=== PATIENT | female | born 1960 | race Caucasian/White ===

== ENCOUNTER 2018-06-04 11:15 | Outpatient (CLI) | payer OTHER | END 2018-06-04 11:16 | disposition home or self-care (01) | LOC: BICMAMMO 11:15 | PROVIDERS: ATTEND Family Medicine | DX: Z12.31 Encounter for screening mammogram for malignant neoplasm of breast (principal) | CPT/HCPCS: 77063; 77067 ==

== ENCOUNTER 2019-06-11 09:04 | Inpatient (IN) | payer OTHER ==
--- NOTE | 2019-06-11 09:54 | RAD ---
EXAM: XR Chest 1 View Portable PROVIDED CLINICAL HISTORY: Dyspnea COMPARISON: 07/15/2012 FINDINGS: The cardiac silhouette appears enlarged, which may be least partially on the basis of portable techni que. 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 No focal consolidation, pleural fluid or pneumothorax apparent. IMPRESSION: Prominence of the cardiac silhouette.
[2019-06-11 09:59] LABS: ALT (SGPT) 102 U/L (8-55); AST (SGOT) 37 U/L (5-34); Albumin 3.8 g/dL (3.5-5.0); Alkaline Phosphatase 84 U/L (40-110); Anion Gap 12 mmol/L (10-20); BUN (Urea Nitrogen) 42 mg/dL (9.8-20.1); Bilirubin, Total 0.5 mg/dL (0.2-1.2); Calc. Creatinine Clearance 0 mL/min (70-130); Calcium 8.9 mg/dL (7.8-10.44); Carbon Dioxide 22 mmol/L (22-29); Chloride 110 mmol/L (98-107); Estimated GFR-MDRD 26; Glucose 121 mg/dL (70-105); Lipase 23 U/L (8-78); Potassium 4.4 mmol/L (3.5-5.1); Protein, Total 6.8 g/dL (6.0-8.3); Sodium 140 mmol/L (136-145)
[2019-06-11] MEDS ORDERED: Furosemide 40 MG/4 ML VIAL ONE (10:58)
[2019-06-11 12:27] LABS: #Basophils 0.1 thou/uL (0.0-0.2); #Eosinphils 0.4 thou/uL (0.0-0.7); #Lymphocytes 2.2 thou/uL (1.20-3.40); #Monocytes 0.8 thou/uL (0.11-0.59); #Neutrophils 6.4 thou/uL (1.40-6.50); %Basophils 0.6 % (0.0-1.0); %Eosinophils 3.6 % (0.0-10.0); %Lymphocytes 22.6 % (21.0-51.0); %Monocytes 7.9 % (0.0-10.0); %Neutrophils 65.4 % (42.0-75.0); Hemoglobin 11.5 g/dL (12.0-16.0); Mean Corpuscular HGB CONC 34.9 g/dL (32.0-36.0); Mean Corpuscular Hemoglobin 30.5 pg (27.0-31.0); Mean Corpuscular Volume 87.4 fL (78.0-98.0); Mean Platelet Volume 9.5 fL (7.4-10.4); Platelet Count 181 thou/uL (130-400); RBC Distribution Width 12.2 % (11.5-14.5); Red Blood Cell (RBC) Count 3.76 mill/uL (4.20-5.40); White Blood Cell (WBC) Count 9.8 thou/uL (4.8-10.8)
[2019-06-11] MEDS ORDERED: Ondansetron PF 4 MG/2 ML Vial IVP PRN (12:29)
[2019-06-11] MEDS ORDERED: Ondansetron ODT 4 MG TAB SL PRN (12:29)
[2019-06-11 12:34] VITALS: BMI 36.0
[2019-06-11] MEDS ORDERED: Acetaminophen 325 MG TAB PO PRN (12:58)
[2019-06-11 13:31] LABS: Troponin I 0.011 ng/mL (< 0.028)
[2019-06-11 16:04] LABS: Troponin I Less than 0.010 ng/mL (< 0.028)
[2019-06-11] MEDS ORDERED: Ondansetron ODT 4 MG TAB PO PRN (18:24)
[2019-06-11] MEDS ORDERED: traMADol HCl 50 MG TAB PO SCH (19:00)
--- NOTE | 2019-06-11 19:50 | PDOC.HHP ---
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 The patient states that she had to get up in a recliner last night due to the shortness of breath. She reports ten pound weight gain over the last few weeks, but denies excessive fluid intake. She reports wheezing during her exercise classes recently and felt that she must have been out of shape. She denies chest pain. She has been having a dry cough for the past few weeks that got worst last night with occasional phlegm coming up. She denies fevers or chills. Last week she had generalized achiness, diarrhea, and headaches, and missed a few days of work due to this. She reports sick contacts at work; she works as a nurse practitioner. She went to urgent care today who did a flu swab that came back negative. The patient feels "I think I have a virus, pneumonia, or endocarditis." The patient is not an active smoker. She is able to do physician internist and walk up a flight of stairs without significant shortness of breath. THe patient says she had a referral pending for rheumatology due to complaints of morning stiffness, pain in both hips, low back, left shoulder and left MCP joint. She says she saw ortho yesterday who told her she has arthritis in her shoulders. The patient states she does not have a insurance professional as as an outpatient. ED Course: In the ER, the patient was noted to be 90% on room air. Chest X ray showed cardiomegaly. BNP was 500, tropnin was normal x 32. The patient was given IV lasix 40 mg which she states improved her shortness of breath somewhat. Her heart rate had also dropped to 40 a few times on occasion in the ER. Hospitalist ROS - Review of Systems Constitutional: reports: weakness, malaise. denies: fever, chills, sweats Eyes: denies: pain, vision change Respiratory: reports: cough, shortness of breath, wheezing Cardiovascular: reports: orthopnea, paroxysmal noc. dyspnea, edema. denies: chest pain, palpitations Gastrointestinal: reports: nausea, abdominal pain (RUQ pain for the past one day , but has it intermittently). denies: vomiting Genitourinary: denies: dysuria, frequency Musculoskeletal: reports: shoulder pain (left shoulder), hand pain (left hand pain on MCP joint between thumb and finger), foot pain (right mid foot pain) Skin: denies: rash, lesions Neurological: denies: weakness, numbness, incoordination - Medication Medications: Active Medications Generic Name Dose Route Start Last Admin Trade Name Freq PRN Reason Stop Dose Admin Acetaminophen 650 mg 06/11/19 12:58 06/11/19 13:31 Tylenol PO 650 mg Q6H PRN Administration Headache/Fever or Pain Tramadol HCl 25 mg 06/11/19 19:00 06/11/19 19:18 Ultram PO 06/11/19 21:00 Not Given NOW [facility] Hospitalist History - Past Medical History Other Medical History: Tetralogy of Fallot as a kid Migraines Positive TB test - Past Surgical History Other Surgical History: 2 knee replacements Fractured bones in arms - Family History Family History: reports: hypertension - Social History Smoking Status: Never smoker Alcohol: reports: Occassional Living Situation: With Family Occupation: Nurse practitioner Activity level: independent ambulation - Exam General Appearance: NAD, awake alert Eye: PERRL, anicteric sclera ENT: normocephalic atraumatic, no oropharyngeal lesions Neck: supple, symmetric, no JVD, no thyromegaly Heart: RRR, no gallops, no rubs, normal peripheral pulses Heart - other findings: systolic murmur heard loudest at left second intercostal Respiratory: CTAB, no wheezes, no rales, no ronchi Gastrointestinal: soft, normal bowel sounds, no splenomegaly Gastrointestinal - other findings: RUQ tenderness, mild abdominal distension Extremities: no cyanosis, no clubbing, no edema Hospitalist Results - Labs Result Diagrams: 06/11/19 12:07 06/11/19 09:29 Lab results: WBC 9.8 thou/uL (4.8-10.8) 06/11/19 12:07 Hgb 11.5 g/dL (12.0-16.0) L 06/11/19 12:07 Hct 32.8 % (36.0-47.0) L 06/11/19 12:07 MCV 87.4 fL (78.0-98.0) 06/11/19 12:07 Plt Count 181 thou/uL (130-400) 06/11/19 12:07 Neutrophils % 65.4 % (42.0-75.0) 06/11/19 12:07 Sodium 140 mmol/L (136-145) 06/11/19 09:29 Potassium 4.4 mmol/L (3.5-5.1) 06/11/19 09:29 Chloride 110 mmol/L (98-107) H 06/11/19 09:29 Carbon Dioxide 22 mmol/L (22-29) 06/11/19 09:29 BUN 42 mg/dL (9.8-20.1) H 06/11/19 09:29 Creatinine 1.96 mg/dL (0.6-1.1) H 06/11/19 09:29 Glucose 121 mg/dL (70-105) H 06/11/19 09:29 Calcium 8.9 mg/dL (7.8-10.44) 06/11/19 09:29 Total Bilirubin 0.5 mg/dL (0.2-1.2) 06/11/19 09:29 AST 37 U/L (5-34) H 06/11/19 09:29 ALT 102 U/L (8-55) H 06/11/19 09:29 Alkaline Phosphatase 84 U/L (40-110) 06/11/19 09:29 Troponin I Less than 0.010 ng/mL (< 0.028) 06/11/19 15:25 B-Natriuretic Peptide 497.4 pg/mL (0-100) H 06/11/19 09:29 Serum Total Protein 6.8 g/dL (6.0-8.3) 06/11/19 09:29 Albumin 3.8 g/dL (3.5-5.0) 06/11/19 09:29 Lipase 23 U/L (8-78) 06/11/19 09:29 Hospitalist H&P A/P - Plan Plan: EKG: incomplete RBBB Chest X ray: cardiomegaly This is a 58 year old female who presented with shortness of breath that started last night, with cardiomegaly on X ray, elevated BNP, admitted for possible acute heart failure #Acute heart failure - possibly viral myocarditis? #Tetralogy of Fallot - presented with orthopnea and edema which improved with lasix, had elevated BNP. Will hold additional lasix for now. EKG showed incomplete RBBB, not on beta blockers - will repeat ECHO, has significant murmur on exam. Rule out katherine vs endocarditis . Trop negative times three - check respiratory viral panel BOYD - creatinine 1.96 - possibly cardio renal, repeat BMP in morning - check UA Headache - likely viral - tylenol prn -check ESR and CT head given concern for autoimmune pathology as outpatient - no neuro deficits on exam Myalgias - check SHARMIN test in morning, ESR, CK level, aldolase - respiratory viral panel Diarrhea -check stool culture - respiratory viral panel Anemia - HB 11, check B12 and folate tomorrow Hyperglycemia - glucose 120, check A1C tomorrow History of positive PPD - s/p treatment with INH DVT prophylaxis: ambulation Code status: full code
[2019-06-11] MEDS ORDERED: Amlodipine 5 MG TAB PO SCH (20:45)
--- NOTE | 2019-06-11 22:17 | CT ---
CT Brain WO Con HISTORY: Right frontal headache. COMPARISON: None. FINDINGS: The ventricular and cisternal system is within normal limits. There are no signs of intrace rebral hemorrhage or extra-axial fluid collections. The mastoid air cells are clear. Minimal mucosal changes seen within the maxillary sinuses. IMPRESSION: No acute intracranial abnormalities.
[2019-06-11 22:30] LABS: Bacteria/HPF None Seen HPF (None Seen); Bilirubin Negative (Negative); Blood, Urine 1+ (Negative); Clarity Clear (Clear); Glucose, Urine (Dipstick) Normal (Negative); Leukocyte 75 Leu/uL (Negative); Nitrite Negative (Negative); Protein, Urine (Dipstick) 50 mg/dL (Neg-Trace); RBC/HPF 0-3 HPF (0-3); Squamous Epithelial 0-3 HPF (0-3); Urobilinogen Normal mg/dL (Less than 2)
[2019-06-11] MEDS: SUMAtriptan Succinate 50 MG TAB PO PRN (22:30)
[2019-06-11 22:31] LABS: Urine Culture Reflex Yes Yes
[2019-06-12 05:19] LABS: Hemoglobin 10.9 g/dL (12.0-16.0); Mean Corpuscular HGB CONC 34.3 g/dL (32.0-36.0); Mean Corpuscular Hemoglobin 29.9 pg (27.0-31.0); Mean Corpuscular Volume 87.1 fL (78.0-98.0); Mean Platelet Volume 8.5 fL (7.4-10.4); Platelet Count 182 thou/uL (130-400); RBC Distribution Width 12.2 % (11.5-14.5); Red Blood Cell (RBC) Count 3.66 mill/uL (4.20-5.40); White Blood Cell (WBC) Count 8.4 thou/uL (4.8-10.8)
[2019-06-12 05:24] LABS: Hemoglobin A1c 5.6 % (4.0-6.0)
[2019-06-12 05:37] LABS: ALT (SGPT) 75 U/L (8-55); AST (SGOT) 23 U/L (5-34); Albumin 3.4 g/dL (3.5-5.0); Alkaline Phosphatase 75 U/L (40-110); Anion Gap 12 mmol/L (10-20); BUN (Urea Nitrogen) 44 mg/dL (9.8-20.1); Bilirubin, Total 0.4 mg/dL (0.2-1.2); CK (CPK) 110 U/L (29-168); Calc. Creatinine Clearance 57 mL/min (70-130); Calcium 8.4 mg/dL (7.8-10.44); Carbon Dioxide 22 mmol/L (22-29); Chloride 111 mmol/L (98-107); Estimated GFR-MDRD 34; Globulin 2.6 g/dL (2.4-3.5); Glucose 98 mg/dL (70-105); Potassium 4.4 mmol/L (3.5-5.1); Sodium 141 mmol/L (136-145)
[2019-06-12] MEDS: Amlodipine 5 MG TAB PO SCH (07:14)
[2019-06-12] MEDS: SUMAtriptan Succinate 50 MG TAB PO PRN ×2 (11:27→17:11)
--- NOTE | 2019-06-12 11:37 | PDOC.HOSPP ---
- Subjective Encounter Date: 06/12/19 Encounter Time: 11:35 non-verbal Subjective: The patient still complains of feeling short of breath and feels she has some virus. Patient denies leg swelling today. She does have a mild cough. Patient is wondering how she got CHF, never had hypertension before and her VSD was repaired as a child. SHe is interested in seeing a chain tender. . Also says her abdomen feels bloated and she is unable to eat more than a few bites without feeling full. Denies nausea or vomiting. She does give a history of fatty liver. She denies sore throat or fever, was asking whether she has mono She still has some generalized malaise - Objective Vital Signs & Weight: Vital Signs (12 hours) Temp Pulse Resp BP BP Pulse Ox 06/12/19 07:26 98.8 F 53 L 16 151/70 H 94 L 06/12/19 04:00 98.5 F 69 18 122/66 92 L Weight Weight 204 lb 12.8 oz I&O: 06/11/19 06/12/19 06/13/19 06:59 06:59 06:59 Intake Total 990 Output Total 801 Balance 189 Result Diagrams: 06/12/19 04:51 06/12/19 04:51 Hospitalist ROS - Review of Systems Constitutional: denies: fever, chills Respiratory: reports: cough Cardiovascular: denies: chest pain, palpitations Gastrointestinal: denies: nausea, vomiting, abdominal pain - Medication Medications: Active Medications Generic Name Dose Route Start Last Admin Trade Name Freq PRN Reason Stop Dose Admin Acetaminophen 650 mg 06/11/19 12:58 06/11/19 13:31 Tylenol PO 650 mg Q6H PRN Administration Headache/Fever or Pain Amlodipine Besylate 5 mg 06/12/19 09:00 06/12/19 07:14 Norvasc PO Not Given DAILY LORI Ondansetron HCl 4 mg 06/11/19 18:24 06/12/19 11:27 Zofran Odt PO 4 mg Q4H PRN Administration Nausea/Vomiting Sumatriptan Succinate 50 mg 06/11/19 18:24 06/12/19 11:27 Imitrex PO 50 mg Q2H PRN Administration Migraine Headache - Exam General Appearance: NAD, awake alert Eye: PERRL, anicteric sclera ENT: normocephalic atraumatic, no oropharyngeal lesions Neck: supple, symmetric, no JVD, no thyromegaly Heart: RRR, no gallops, no rubs, normal peripheral pulses Heart - other findings: systolic murmur heard over precordium Respiratory: CTAB, no wheezes, no rales, no ronchi, normal chest expansion Gastrointestinal: soft Gastrointestinal - other findings: RUQ tenderness, possible hepatomegaly to percussion Extremities: no cyanosis, no clubbing, no edema Skin: normal turgor, no lesions, no rashes Hosp A/P - Plan CT head: negative for acute disease ECHO: moderate MR, mild to moderate TR, mild pulmonic regurgitation, EF 50-55% This is a 58 year old female who presented with shortness of breath that started last night, with cardiomegaly on X ray, elevated BNP, admitted for possible acute heart failure #Acute heart failure - possibly viral myocarditis #History of Tetralogy of Fallot #Moderate MR - presented with orthopnea and edema which improved with lasix, had elevated BNP. ECHO shows EF 50-55%, did not comment on diastolic dysfunction. She does have moderate MR , patient is interested in a cardiology consult while here for workup of heart failure and given history of Tetralogy of Fallot -respiratory viral panel negative #RUQ pain #Transaminitis - likely congestive hepatopathy - will order abdominal ultrasound due to bloating and RUQ tenderness. Patient reports history of fatty liver - LFTs came down with lasix. #BOYD - possibly cardiorenal - creatinine improved to 1.54 after receiving lasix. Will obtain RUQ ultrasound , if still signs of fluid buildup will give more lasix -UA shows 75 leukocyte esterase, 11-20 WBC, urine culture pending #Headache with history of migraines - likely viral - tylenol prn and sumatriptan prn - ESR negative, CT head negative #Myalgias -SHARMIN pending, ESR normal, CK normal, aldolase pending - RVP panel negative #Diarrhea -stool culture negative - respiratory viral panel negative #Anemia - HB 11, B12 and folate normal #Prediabetes - HbA1C 5.6, patient needs weight loss #History of positive PPD - s/p treatment with INH DVT prophylaxis: heparin SC Code status: full code
--- NOTE | 2019-06-12 14:12 | ULT ---
EXAM: Right upper quadrant ultrasound PROVIDED CLINICAL HISTORY: Abdominal pain COMPARISON: None FINDINGS: Visualized portions of the pancreas appear normal. Liver demonstrates no solid mass or intrahepatic b iliary ductal dilatation. Simple appearing left hepatic lobe cyst. Common duct is nondilated. There is conspicuous thickening involving the gallbladder wall measuring up to 1 cm. There is no evidence f or gallstones or pericholecystic fluid. The presence or absence of a sonographic Lino sign is not indicated by the plastics technician. Right kidney demonstrates no hydronephrosis or mass. IMPRESSION: Nonspecific gallbladder wall thickening without evidence for stones. If there is concern for acalculo us cholecystitis, consider HIDA scan.
[2019-06-12] MEDS: Heparin 5,000 UNITS/ML VIAL SC SCH ×2 (15:12→20:20)
[2019-06-12] MEDS ORDERED: Furosemide 40 MG/4 ML VIAL SLOW IVP SCH (16:45)
--- NOTE | 2019-06-12 19:58 | CON ---
DATE OF CONSULTATION: HISTORY OF PRESENT ILLNESS: Ms. Ana Rodriguez is a 58-year-old white female , who has history of tetralogy of Fallot. She underwent Martínez procedure at the age of 1 and then further repair at the age of 5. She has spent her entire adult life without significant cardiac problems. Over the last several weeks, she has had problems with increased shortness of breath as well as a 10-pound weight gain. She also has been wheezing during her exercise classes and a dry cough. She has developed diarrhea and came to the emergency room because she continued to have shortness of breath. In the emergency room, room air O2 saturation was 90%. She was given Lasix 40 mg IV, which improved her shortness of breath somewhat. PAST MEDICAL HISTORY: 1. Tetralogy of Fallot as noted above. 2. She has a history of migraines. MEDICATIONS: At home. 1. Travatan Z one drop daily. 2. Imitrex 50 mg q.2 hours p.r.n. 3. Zofran p.r.n. PAST SURGICAL HISTORY: Two knee replacements, repair of tetralogy of Fallot. SOCIAL HISTORY: She does not smoke. Occasionally drinks. REVIEW OF SYSTEMS: Unremarkable. PHYSICAL EXAMINATION: VITAL SIGNS: Blood pressure 168/78, pulse of 54. HEENT: PERRL. NECK: Supple. CHEST: Clear. CARDIAC: S1 and S2 normal without any S3 or S4. There is a 1-2/6 holosystolic murmur on the left sternal border. ABDOMEN: Normal bowel sounds without tenderness or organomegaly. EXTREMITIES: Revealed no clubbing, cyanosis, or edema. NEUROLOGICAL: Grossly intact. SKIN: Warm and dry. LABORATORY DATA: EKG revealed sinus bradycardia with rate of 50 per minute with incomplete right bundle-branch block. Poor R-wave progression. Cardiac enzymes were unremarkable. BNP 507.5, BUN 42, creatinine 1.96, sodium 140, potassium 4.4, chloride 110. Hemoglobin 10.9, hematocrit 31.9, white count 8400, platelets 182,000. Echocardiogram revealed ejection fraction 50% to 55%, the study was technically difficult. There was moderate left atrial enlargement, moderate mitral regurgitation, mild to moderate tricuspid regurgitation, and mild pulmonic regurgitation. IMPRESSION: 1. Increased dyspnea, which I doubt is due to a cardiac cause and probably more related to what sounds like a viral syndrome. She also may have some degree of diastlic dysfunction. 2. Volume depletion from looking at her BUN and creatinine. She states that she has been having diarrhea and has not felt like eating or drinking anything. 3. Status post repair of tetralogy. 4. Probable hypertension. 5. History of migraines. PLAN: At the present time, from a cardiovascular standpoint, I have no specific recommendations. I will place her on DuoNeb since she states that she noticed that she was wheezing at exercise class. She may need Furosemide chronically. I also suggested that she should consider at some point in time seeing a pediatric acute care unit nurse since in general they are the ones who continue to follow adults who have had repair of congenital abnormalities. Job ID: [id number]
[2019-06-13 05:42] LABS: Hemoglobin 11.1 g/dL (12.0-16.0); Mean Corpuscular HGB CONC 33.9 g/dL (32.0-36.0); Mean Corpuscular Hemoglobin 29.8 pg (27.0-31.0); Mean Platelet Volume 8.8 fL (7.4-10.4); Platelet Count 198 thou/uL (130-400); RBC Distribution Width 12.1 % (11.5-14.5); Red Blood Cell (RBC) Count 3.73 mill/uL (4.20-5.40); White Blood Cell (WBC) Count 8.8 thou/uL (4.8-10.8)
[2019-06-13 06:01] LABS: Anion Gap 12 mmol/L (10-20); BUN (Urea Nitrogen) 40 mg/dL (9.8-20.1); Calc. Creatinine Clearance 58 mL/min (70-130); Calcium 8.8 mg/dL (7.8-10.44); Carbon Dioxide 26 mmol/L (22-29); Chloride 108 mmol/L (98-107); Estimated GFR-MDRD 36; Glucose 94 mg/dL (70-105); Potassium 4.6 mmol/L (3.5-5.1); Sodium 141 mmol/L (136-145)
[2019-06-13] MEDS: Amlodipine 5 MG TAB PO SCH (09:31)
[2019-06-13] MEDS: Heparin 5,000 UNITS/ML VIAL SC SCH ×2 (09:32→15:46)
[2019-06-13] MEDS ORDERED: Azithromycin 250 MG TAB PO SCH (10:15)
[2019-06-13 10:57] LABS: ALT (SGPT) 64 U/L (8-55); AST (SGOT) 20 U/L (5-34); Albumin 3.8 g/dL (3.5-5.0); Alkaline Phosphatase 79 U/L (40-110); Bilirubin, Direct 0.2 mg/dL (0.1-0.3); Bilirubin, Total 0.4 mg/dL (0.2-1.2); Protein, Total 6.6 g/dL (6.0-8.3)
[2019-06-13] MEDS ORDERED: Budesonide 0.25 MG/2 ML NEB ONE (11:27)
--- NOTE | 2019-06-13 11:36 | CT ---
CT Chest WO Con HISTORY: Shortness of breath. Cough and chest pain. COMPARISON: None. FINDINGS: The lungs are clear of any infiltrates. There are mild bilateral pleural effusions right la rger than left with bibasilar atelectatic changes. 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 Pulmonary arteries are normal in caliber. There is a hypodensity within the left lobe of liver most likely a cyst. The gallbladder wall appears thickened. This is been noted on a previous ultrasound. IMPRESSION: Bilateral pleural effusions right larger than left with bibasilar atelectatic lung change slightly more confluent in the right lower lobe. 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 Gallbladder wall thickening.
[2019-06-13] MEDS ORDERED: guaiFENesin ER 600 MG TAB PO SCH ×2 (12:00→21:00)
[2019-06-13 13:36] LABS: ANA Symphony (Qualitative) Negative (Negative); ANA Symphony (Quantitative) 0.4 Ratio (< 0.7 Negative); dsDNA IgG Antibody 5.1 IU/mL (<10 Negative)
[2019-06-13 16:32] VITALS: BP 154/76; TEMP 98.4
--- NOTE | 2019-06-13 17:22 | DIS ---
DATE OF ADMISSION: 06/11/2019 DATE OF DISCHARGE: 06/13/2019 DISCHARGE DIAGNOSES: Acute diastolic heart failure, possible exercise-induced asthma, moderate mitral regurgitation, possible exercise-induced asthma versus viral bronchitis, acute kidney injury, transaminitis, anemia. CONSULTATIONS: Cardiology with Dr. Cristobal. PROCEDURES: None. BRIEF HISTORY OF PRESENT ILLNESS: This is a 58-year-old female with a past medical history of tetralogy of Fallot, status post VSD with patch placement in the past , migraines, who presented with shortness of breath that had started the night before admission. The patient reported having to sleep in a recliner due to shortness of breath and also reported a 10-pound weight gain over the past few weeks. She also reported dyspnea on exertion and wheezing during her exercise classes. The patient also reported feeling flu-like symptoms for the past one week, however, she had a negative flu test at Urgent Care. Upon presentation to the ER, the patient was noted to have a BNP of 500, creatinine of 1.96, and her oxygen saturation was 98% on room air. The patient was given IV Lasix and admitted for further workup. Chest x-ray on ER had showed cardiomegaly. HOSPITAL COURSE: Acute diastolic heart failure in the setting of history of tetralogy of Fallot, moderate mitral regurgitation, moderate tricuspid regurgitation: The patient had reported some improvement with Lasix and her edema had improved. ECHO showed an EF of 50% to 55%, [id number] TR, and moderate MR. Cardiology was consulted and did not think this was heart failure and thought it was more of a viral pathology but eventually agreed she may have some diastolic dysfunction. The patient, however had complained of some abdominal distention and after having a normal ultrasound of her bladder, she was given additional dose of IV Lasix on 06/12 with improvement in her abdominal distention. The patient also reported a 4-pound weight loss after receiving her IV Lasix and she felt much less short of breath while ambulating. The patient had a CT scan of her chest due to suspicion of heart failure and this showed bilateral pleural effusions, right greater than left. The patient was given an additional dose of 40 mg oral Lasix on the day of discharge. She will be discharged with 2 additional days of Lasix and will follow up with her PCP in a few days and have her labs repeated. Cardiology advised the patient to follow up with a pediatric clinical dietician as an outpatient Possible exercise-induced asthma: The patient reported wheezing during her exercise classes and persistent cough. She was started on some breathing treatments and Pulmicort, which she stated helped her cough. She was also started on empiric antibiotics with azithromycin. The patient did not have any evidence of pneumonia on chest x-ray or CT scan of her chest. However, given that she may have possible undiagnosed asthma or COPD, she was given a prescription for azithromycin for atypical coverage. It was advised that the patient get PFTs done as an outpatient for further workup of this. She was discharged on albuterol inhaler p.r.n., and she was given a prescription for Pulmicort inhaler to take twice daily. This can be continued at the discretion of her PCP. Acute kidney injury: The patient presented with a creatinine of 1.96. She is given IV Lasix for 2 days and her creatinine improved to 1.47. The patient states that she wants to go home; therefore, she was given Lasix orally for an additional 2 days and will have her BMP rechecked with her PCP in 2 days. She did have a UA done, which showed only 50 of protein, 1+ blood, 11 to 20 white blood cells with normal urine culture. Right upper quadrant pain/transaminitis: This is likely secondary to congestive hepatopathy. The patient did have elevated AST of 37 and ALT of 102 on admission. This came down to 23 and 75 respectively on the day of discharge. She did have an abdominal ultrasound which showed gallbladder wall thickening without evidence of stones. Given that she received IV Lasix for 2 days with improvement, this is likely secondary to congestive hepatopathy. The patient should have LFTs repeated as an outpatient. Anemia: The patient has hemoglobin of 11.1. She had vitamin B12 and folate level that were done which were normal. The patient should have this worked up as an outpatient, consider outpatient colonoscopy. Myalgias: The patient had reported multiple achy joints in her hip, shoulder, and foot. She had ESR checked, which was unremarkable. An SHARMIN panel was unremarkable. She also had a respiratory viral panel which was negative for influenza, parainfluenza, and adenovirus and human metapneumovirus and rhinovirus. These seemed to have resolved on the day of discharge. Migraines: The patient will continue with her sumatriptan p.r.n. Diarrhea: The patient had stool culture done which was negative. This may have been viral. Her respiratory viral panel was normal. Prediabetes: The patient had HbA1c of 5.6. The patient was advised that she needs weight loss. She should have this repeated as an outpatient. Hypertension: The patient was noted to have blood pressure of 150s to 160 in the hospital. The patient states she has never had a history of high blood pressure and her blood pressure is typically in the 90s to 100s. She will take Lasix for 2 days and have her blood pressure rechecked with her PCP and see if she needs antihypertensive therapy as an outpatient. DISCHARGE PHYSICAL EXAMINATION: VITAL SIGNS: Temperature 98.4, heart rate 65, respiratory rate 14, O2 saturation 96% on room air, blood pressure 154/76. GENERAL: The patient is obese. She is alert, awake, oriented x3. CVS: Regular rate and rhythm with a systolic murmur heard in the left second and right second intercostal space. LUNGS: Slightly diminished at the bases, but no wheezing heard. ABDOMEN: Positive bowel sounds, soft, nontender, nondistended. EXTREMITIES: No significant edema. PERTINENT LABORATORY DATA: CBC on 06/13: Shows a hemoglobin 11.1, hematocrit 30.2. BMP on 06/12: Chloride was 108, creatinine was 1.47. LFTs: AST 06/12: AST is 20, ALT is 64, alkaline phosphatase is 79. Hemoglobin A1c: Was 5.6. BNP: Was 507.5. Vitamin B12: 250. Folate: 11.80. Troponin I: Was 0.013, 0.011, less than 0.010. UA: Shows urine protein 50, 1+ blood, 75 leukocyte esterase, 11 to 20 white blood cells, 11 to 20 hyaline casts. SHARMIN screen: Was negative. Respiratory viral panel 06/11: Was unremarkable with no influenza, RSV, adenovirus, human metapneumovirus, parainfluenza virus, rhinovirus. Urine culture 06/11: Shows 10,000 to 25,000 mixed skin jona. Stool culture 06/12: Few normal enteric jona. Campylobacter and shiga toxin assay: Was negative. DISCHARGE CONDITION: Stable. DIET: Heart healthy diet. ACTIVITY: As tolerated. The patient should consider using albuterol 30 minutes prior to exercise. DISCHARGE MEDICATIONS: 1. Albuterol ProAir two puff inhalation q.6 hours p.r.n. 2. Mucinex 600 mg p.o. q.12 hours for 7 days. 3. Azithromycin 250 mg p.o. daily for 4 days. 4. Pulmicort inhaled b.i.d. 5. Furosemide 40 mg p.o. daily for 2 days. 6. Sumatriptan 50 mg p.o. q.2 hours p.r.n. for headache. 7. Travoprost. DISCHARGE INSTRUCTIONS: The patient to follow up with her PCP in 2 days and have her BMP and LFTs repeated. She should have outpatient PFTs done. She should follow up with a pediatric clinical dietician as an outpatient. Job ID: [id number]
[2019-06-13] MEDS ORDERED: Furosemide 40 MG TAB PO SCH (17:30)
[2019-06-13] MEDS ORDERED: Budesonide 0.25 MG/2 ML NEB INH SCH (18:30)
[2019-06-14] MEDS ORDERED: Furosemide 40 MG/4 ML VIAL SLOW IVP SCH (09:00)
[2019-06-14] MEDS ORDERED: Hydrochlorothiazide 25 MG TAB PO SCH (09:00)
== END 2019-06-13 17:57 | disposition home or self-care (01) | DRG 291 ==
LOC: ERS 09:04 → 2SW 11:24 → OBSVTOIN 11:24
PROVIDERS: ADMIT Internal Medicine; ATTEND Internal Medicine
DX: I11.0 Hypertensive heart disease with heart failure (principal); I50.31 Acute diastolic (congestive) heart failure; N17.9 Acute kidney failure, unspecified; G43.909 Migraine, unspecified, not intractable, without status migrainosus; Z96.653 Presence of artificial knee joint, bilateral; D64.9 Anemia, unspecified; I34.0 Nonrheumatic mitral (valve) insufficiency; J45.990 Exercise induced bronchospasm; Z79.899 Other long term (current) drug therapy; R19.7 Diarrhea, unspecified; R73.03 Prediabetes; J40 Bronchitis, not specified as acute or chronic
CPT/HCPCS: 36415; 70450; 71045; 71250; 76705; 80048; 80053; 80076; 81001; 82085; 82550; 82607; 82746; 83036; 83690; 83880; 84484; 85025; 85027; 85652; 86038; 86225; 87045; 87046; 87086; 87427; 87449; 87633; 93005; 93306; 94640; 96374; J1940; J7620; J7626; Q0162

== ENCOUNTER 2019-06-30 11:02 | Outpatient (CLI) | payer OTHER ==
--- NOTE | 2019-06-30 12:48 | CT ---
CT ABDOMEN AND PELVIS WITH ORAL AND IV CONTRAST: HISTORY: Generalized abdominal pain. FINDINGS: The lung bases are clear. There is a 17 mm septated cyst in the left lobe of the liver close to the dome. The tiny low-density lesion in the right lobe of the liver is likely a cyst as well. No calci fied gallstones are seen. The spleen, pancreas, adrenal glands, and kidneys are normal. No free air, free fluid, or lymphadenopathy is noted in the abdomen or pelvis. Uterus is present. T he small bowel loops are not abnormally dilated. There is prominence of the wall of the colon. Ther e are a few sigmoid diverticula. There are vascular calcifications without evidence of aneurysmal dilatation of the abdominal aorta. There are degenerative changes in the spine. IMPRESSION: 1. Hepatic cysts. 2. Sigmoid diverticulosis. 3. Wall prominence/thickening of the colon. Further evaluation with colonoscopy would be helpful. POS: [facility]
[2019-06-30] MEDS ORDERED: Iopamidol-370 76% 500 ML 1 ML ONE (13:37)
== END 2019-06-30 11:03 | disposition home or self-care (01) ==
LOC: BICCT 11:02
PROVIDERS: ATTEND Family Medicine
DX: R10.84 Generalized abdominal pain (principal); K76.89 Other specified diseases of liver; K57.30 Diverticulosis of large intestine without perforation or abscess without bleeding; K63.89 Other specified diseases of intestine
CPT/HCPCS: 74177; Q9967

== ENCOUNTER 2019-06-30 14:12 | Outpatient (CLI) | payer OTHER ==
--- NOTE | 2019-06-30 14:18 | MMO ---
Bilateral MAMMO Bilat Screen [facility]. CLINICAL HISTORY: Patient is 59 years old and is seen for screening. The patient has no family history of breast cancer. The patient has no personal history of cancer. The patient has a history of right Excisional Biopsy at age 35 - benign. VIEWS: The views performed were: bilateral craniocaudal with tomosynthesis and bilateral mediolateral oblique with tomosynthesis. FILMS COMPARED: The present examination has been compared to prior imaging studies performed at [facility] on 04/25/2008 and 06/04/2018. This study has been interpreted with the assistance of computer-aided detection. MAMMOGRAM FINDINGS: The breasts are heterogeneously dense, which could obscure a lesion on mammography. There are no suspicious masses, suspicious calcifications, or new areas of architectural distortion. IMPRESSION: THERE IS NO MAMMOGRAPHIC EVIDENCE OF MALIGNANCY. A ROUTINE FOLLOW-UP MAMMOGRAM IN 1 YEAR IS RECOMMENDED. THE RESULTS OF THIS EXAM WERE SENT TO THE PATIENT. ACR BI-RADS Category 1 - Negative MAMMOGRAPHY NOTE: 1. A negative mammogram report should not delay a biopsy if a dominant of clinically suspicious mass is present. 2. Approximately 10% to 15% of breast cancers are not detected by mammography. 3. Adenosis and dense breasts may obscure an underlying neoplasm. Reported by: JULIAN KNIGHT MD Electonically Signed: [id number]
== END 2019-06-30 14:13 | disposition home or self-care (01) ==
LOC: BICMAMMO 14:12
PROVIDERS: ATTEND Family Medicine
DX: Z12.31 Encounter for screening mammogram for malignant neoplasm of breast (principal); Z91.89 Other specified personal risk factors, not elsewhere classified
CPT/HCPCS: 77063; 77067

== ENCOUNTER 2019-07-06 12:27 | Outpatient (CLI) | payer OTHER ==
--- NOTE | 2019-07-06 16:25 | NM ---
HEPATOBILIARY SCAN: HISTORY:Abdominal pain. No gallstones and ultrasound of 06/12/2019. RADIOPHARMACEUTICAL: 5.4 mCi Technetium 99m Mebrofenin injected intravenously FINDINGS: There is normal tracer extraction by the liver with normal excretion into the biliary tracts and smal l bowel loops and normal filling of the gallbladder. The calculated gallbladder ejection fraction following an oral fatty meal measures 62%. IMPRESSION:Normal exam.
== END 2019-07-06 12:28 | disposition home or self-care (01) ==
LOC: NM 12:27
PROVIDERS: ATTEND Family Medicine
DX: K82.8 Other specified diseases of gallbladder (principal)
CPT/HCPCS: 78227; A9537

== ENCOUNTER 2022-09-12 10:42 | Outpatient (CLI) | payer BC | END 2022-09-12 10:43 | disposition home or self-care (01) | LOC: BICMAMMO 10:42 | PROVIDERS: ATTEND Family Medicine | DX: Z12.31 Encounter for screening mammogram for malignant neoplasm of breast (principal); Z91.89 Other specified personal risk factors, not elsewhere classified | CPT/HCPCS: 77063; 77067 ==

== ENCOUNTER 2024-08-01 15:45 | Outpatient (CLI) | payer BC ==
[2024-08-01 16:47] LABS: #Basophils 0.04 10x3/uL (0.0-0.2); %Basophils 0.4 % (0.0-1.0); %Eosinophils 2.8 % (0.0-10.0); %Monocytes 7.9 % (0.0-10.0); %Neutrophils 56.7 % (42.0-75.0); Hematocrit 41.9 % (36.0-47.0); Hemoglobin 14.1 g/dL (12.0-16.0); Mean Corpuscular HGB CONC 33.7 g/dL (32.0-36.0); Mean Platelet Volume 11.8 fL (7.4-10.4); Platelet Count 241 10x3/uL (130-400); RBC Distribution Width 13.2 % (11.5-14.5); Red Blood Cell (RBC) Count 4.87 mill/uL (4.20-5.40)
[2024-08-01 17:07] LABS: Anion Gap 12 mmol/L (10-20); BUN (Urea Nitrogen) 18 mg/dL (9.8-20.1); Calc. Creatinine Clearance 0 mL/min (70-130); Calcium 9.2 mg/dL (7.8-10.44); Carbon Dioxide 21 mmol/L (23-31); Chloride 113 mmol/L (98-107); Estimated GFR 86; Glucose 79 mg/dL (80-115); Potassium 4.2 mmol/L (3.5-5.1); Sodium 142 mmol/L (136-145)
[2024-08-01 17:09] LABS: INR-International Normal Ratio 0.9; Prothrombin Time 12.6 sec (12.0-14.7)
== END 2024-08-01 15:46 | disposition home or self-care (01) ==
LOC: LABBT 15:45
PROVIDERS: ATTEND Orthopaedic Surgery
DX: Z01.818 Encounter for other preprocedural examination (principal); M16.11 Unilateral primary osteoarthritis, right hip
CPT/HCPCS: 80048; 85025; 85610; 87081; 93005; 93010

== ENCOUNTER 2024-08-09 06:35 | Observation (INO) | payer MEDICARE, OTHER ==
[2024-08-01 15:55] VITALS: BMI 34.5
[2024-08-09] MEDS ORDERED: SUMAtriptan Succinate 50 MG TAB PO PRN (07:05)
[2024-08-09] MEDS ORDERED: Tranexamic Acid 1,000 MG/10 ML VIAL ONE (07:40)
[2024-08-09] MEDS ORDERED: Vancomycin (BATCH) 300 ML ONE (07:40)
[2024-08-09] MEDS ORDERED: Sodium Chloride 0.9% 100 ML ONE (07:40)
[2024-08-09] MEDS ORDERED: CEFAZOLIN 2 GM VIAL ONE (07:55)
[2024-08-09] MEDS ORDERED: Midazolam HCl 2 mg/2 ml Vial ONE (07:57)
[2024-08-09] MEDS ORDERED: fentaNYL 50 mcg/mL 1 mL Vial ONE (07:57)
[2024-08-09] MEDS ORDERED: Lidocaine 1.5% w/Epi 1:200K 30 ML VIAL (Epid Use) ONE (08:42)
[2024-08-09] MEDS ORDERED: Rocuronium Bromide 10 MG/ML (10ML VIAL) ONE (09:02)
[2024-08-09] MEDS ORDERED: PROPOFOL 20 ML ONE (09:02)
[2024-08-09] MEDS ORDERED: fentaNYL PF 100 MCG/2 ML SYRINGE ONE ×2 (09:02→11:51)
[2024-08-09] MEDS ORDERED: Lidocaine 2% PF 5 ML VIAL ONE (09:10)
[2024-08-09] MEDS ORDERED: PHENYLEPHRINE-NS 100 MCG/ML 10 ML SYRINGE ONE ×2 (09:10→11:02)
[2024-08-09] MEDS ORDERED: Lidocaine 2% 6 ML (Jelly) SYR ONE (09:10)
[2024-08-09] MEDS ORDERED: HYDROcodone/Acetaminophen 10/325 mg Tablet PO PRN (09:13)
[2024-08-09] MEDS ORDERED: diphenhydrAMINE 25 MG CAP PO PRN (09:15)
[2024-08-09] MEDS ORDERED: Bupivacaine 0.25% 10 ML VIAL EPIDURAL PRN (09:15)
[2024-08-09] MEDS ORDERED: Naloxone HCl 0.4 mg/ml Vial IV PRN (09:15)
[2024-08-09] MEDS ORDERED: traMADol HCl 50 MG TAB PO PRN ×2 (09:15)
[2024-08-09] MEDS ORDERED: Promethazine HCl 25 MG/ML VIAL IM PRN ×2 (09:15→10:11)
[2024-08-09] MEDS ORDERED: Ondansetron PF 4 MG/2 ML Vial IVP PRN ×2 (09:15→10:11)
[2024-08-09] MEDS ORDERED: Zolpidem Tartrate 5 MG TAB PO PRN ×2 (09:15→10:11)
[2024-08-09] MEDS ORDERED: Promethazine HCl 25 MG SUPP PR PRN (09:15)
[2024-08-09] MEDS ORDERED: Moisturizing Cream (Eucerin) 113 GM JAR TOP PRN (09:15)
[2024-08-09] MEDS ORDERED: diphenhydrAMINE 50 MG/ML VIAL IM PRN (09:15)
[2024-08-09] MEDS ORDERED: Dexamethasone 20 MG/5 ML VIAL ONE (09:15)
[2024-08-09] MEDS ORDERED: diphenhydrAMINE 50 MG/ML VIAL IVP PRN (09:15)
[2024-08-09] MEDS ORDERED: Naloxone HCl 0.4 mg/ml Vial IVP PRN (09:15)
[2024-08-09] MEDS ORDERED: ePHEDrine Sulfate 50 MG/10 ML VIAL ONE (09:53)
[2024-08-09] MEDS ORDERED: Glycopyrrolate 0.2 MG/ML 5 ML SYRINGE ONE (10:11)
[2024-08-09] MEDS ORDERED: Acetaminophen 325 MG TAB PO PRN (10:11)
[2024-08-09] MEDS ORDERED: Calcium Chloride 1 GM/10 ML Abboject SYRINGE ONE (10:39)
[2024-08-09] MEDS ORDERED: Ondansetron PF 4 MG/2 ML Vial ONE (11:02)
[2024-08-09] MEDS ORDERED: SUGAMMADEX SODIUM 200 MG/2 ML VIAL ONE (11:09)
[2024-08-09] MEDS ORDERED: HYDROmorphone 0.5 MG/0.5 ML SYRINGE ONE (11:51)
[2024-08-09] MEDS: Atorvastatin Calcium 40 MG TAB PO SCH (13:05)
[2024-08-09] MEDS: Losartan 25 MG TAB PO SCH (13:05)
[2024-08-09] MEDS: Multivitamin W/ Minerals 1 TAB PO SCH (13:06)
[2024-08-09] MEDS: Aspirin 81 mg Enteric Coated Tablet PO SCH ×2 (13:06→21:31)
[2024-08-09] MEDS: Senokot S 8.6-50 MG TAB PO SCH ×2 (13:06→21:36)
[2024-08-09] MEDS: Ferrous Gluconate 324 MG TAB PO SCH ×2 (13:06→21:35)
[2024-08-09] MEDS: Sodium Chloride 0.9% 1,000 ML IV SCH (13:15)
[2024-08-09] MEDS: Ketorolac Tromethamine 30 MG (1 mL) VIAL IVP SCH (13:16)
[2024-08-09] MEDS: Ondansetron ODT 4 MG TAB PO PRN (15:53)
[2024-08-09] MEDS: CEFAZOLIN 2 GM in Sodium Chloride 0.9% 100 ML IVPB SCH (15:54)
[2024-08-09] MEDS: diphenhydrAMINE 25 MG CAP PO PRN (21:32)
[2024-08-10] MEDS: FENTANYL 500 MCG/10 ML VIAL 500 MCG, Bupivacaine 0.75% 10 ML in Sodium Chloride 0.9% 80 ML EPIDURAL SCH (03:59)
[2024-08-10 05:39] LABS: Mean Corpuscular HGB CONC 33.3 g/dL (32.0-36.0); Mean Corpuscular Hemoglobin 29.4 pg (27.0-31.0); Mean Corpuscular Volume 88.2 fL (78.0-98.0); Mean Platelet Volume 11.6 fL (7.4-10.4); Platelet Count 172 10x3/uL (130-400); RBC Distribution Width 13.5 % (11.5-14.5)
[2024-08-10] MEDS: Multivitamin W/ Minerals 1 TAB PO SCH (08:11)
[2024-08-10] MEDS: HYDROcodone/Acetaminophen 10/325 mg Tablet PO PRN (09:24)
[2024-08-10 12:27] VITALS: BP 111/62; TEMP 97.9
== END 2024-08-10 15:30 | disposition home or self-care (01) ==
LOC: SDC 06:35 → INTOOBSV 10:00 → SURG B 10:00
PROVIDERS: ADMIT Orthopaedic Surgery; ATTEND Orthopaedic Surgery
PROC: 0SR90JZ Replacement of Right Hip Joint with Synthetic Substitute, Open Approach (ICD-10-PCS; principal; 2024-08-09)
PROC: 3E0T3BZ Introduction of Anesthetic Agent into Peripheral Nerves and Plexi, Percutaneous Approach (ICD-10-PCS; 2024-08-09)
DX: M16.11 Unilateral primary osteoarthritis, right hip (principal); E78.5 Hyperlipidemia, unspecified; G43.909 Migraine, unspecified, not intractable, without status migrainosus; I11.0 Hypertensive heart disease with heart failure; I50.9 Heart failure, unspecified; D64.9 Anemia, unspecified; F98.8 Other specified behavioral and emotional disorders with onset usually occurring in childhood and adolescence; R01.1 Cardiac murmur, unspecified; Z96.653 Presence of artificial knee joint, bilateral; Z98.890 Other specified postprocedural states; Z88.8 Allergy status to other drugs, medicaments and biological substances
CPT/HCPCS: 27130; 62326; 72170; 73501; 85027; 97116 ×2; 97530 ×2; 97535; C1713; C1776; J1100; J1171; J1885 ×2; J2250; J2405; J2704; J3010 ×3; J3370; J3490 ×2; J7030; Q0162; 36415